=== PATIENT | male | born 1970 | race Caucasian/White ===

== ENCOUNTER 2017-04-25 15:16 | Emergency (ER) | payer OTHER, SELFPAY ==
[2017-04-25] MEDS ORDERED: Bacitracin/Neomycin/Polymyxin B Oint 0.9 GM U/D Packet TOP ONE (15:54)
--- NOTE | 2017-04-25 15:55 | EDM.PDOC ---
ED HPI GENERAL MEDICAL PROBLEM - General Chief Complaint: General Stated Complaint: fall, laceration Time Seen by Provider: 04/25/17 15:30 Source of Information: Reports: Patient History Limitations: Reports: No Limitations - History of Present Illness INITIAL COMMENTS - FREE TEXT/NARRATIVE: The patient presents with complaint of a fall from a ladder at an estimated height of about 5-6 feet. He reports he was trimming branches off of a tree and a tree branch whiplashed back and knocked him off of the ladder and he fell onto his right hip and elbow. He denies other a blow to the head, LOC, headache , neck or back pain, pain of hips or pelvis. He has pain and a laceration of his right elbow and mild abrasions to his left upper cheek. He denies other symptoms or complaints. Right Elbow Pain Score (Numeric/FACES): 2 - Related Data Allergies Allergy/AdvReac Type Severity Reaction Status Date / Time atorvastatin calcium Allergy flushing Verified 04/25/17 15:48 [From Lipitor] Penicillins Allergy Rash Verified 04/25/17 15:48 Home Meds: Home Meds Alfuzosin HCl [Alfuzosin] 10 mg PO QAM 10/15/13 [History] Lisinopril 10 mg PO QAM 10/15/13 [History] glipiZIDE [Glipizide Xl] 2.5 mg PO QAM 10/15/13 [History] Denosumab [Prolia] 60 mg SUBCUT Q180D 03/06/14 [History] InFLIXimab [Remicade] 700 mg IV Q56D 03/06/14 [History] amLODIPine [Norvasc] 5 mg PO QAM 07/27/15 [History] Acetaminophen/HYDROcodone [[place] 325-5 MG] 1 tab PO Q6H PRN #20 tablet 08/02/15 [Rx] Escitalopram [Lexapro] 20 mg PO QAM 08/20/15 [History] Omeprazole 20 mg PO BIDAC 04/13/17 [History] Past Medical History HEENT History: Reports: Impaired Vision Cardiovascular History: Reports: High Cholesterol, Hypertension Gastrointestinal History: Reports: Chronic Constipation, Chronic Diarrhea, GERD , Inflammatory Bowel Disease, Other (See Below) Other Gastrointestinal History: Crohns disease, Colitis, Diverticulitis Genitourinary History: Reports: Prostate Disorder Musculoskeletal History: Reports: Back Pain, Chronic, Osteoarthritis, Osteoporosis Psychiatric History: Reports: Anxiety, Depression Endocrine/Metabolic History: Reports: Diabetes, Type II - Infectious Disease History Infectious Disease History: Reports: Chicken Pox - Past Surgical History GI Surgical History: Reports: Colonoscopy, Other (See Below) Social & Family History - Tobacco Use Smoking Status *Q: Never Smoker Second Hand Smoke Exposure: No - Alcohol Use Days Per Week of Alcohol Use: 1 Number of Drinks Per Day: 1 Total Drinks Per Week: 1 - Recreational Drug Use Recreational Drug Use: No - Living Situation & Occupation Living situation: Reports: , with Family Occupation: Employed ED ROS GENERAL - Review of Systems Review Of Systems: ROS reveals no pertinent complaints other than HPI. ED EXAM, GENERAL - Physical Exam Exam: See Below Exam Limited By: No Limitations General Appearance: Alert, WD/WN, No Apparent Distress Eye Exam: Bilateral Eye: EOMI, Normal Inspection, PERRL Ears: Normal External Exam, Normal Canal, Hearing Grossly Normal, Normal TMs Ear Exam: Bilateral Ear: Auricle Normal, Canal Normal, TM normal Nose: Normal Inspection, Normal Mucosa, No Blood Throat/Mouth: Normal Inspection, Normal Lips, Normal Teeth, Normal Gums, Normal Oropharynx Head: Atraumatic, Normocephalic, Other (Mild abrasions to left upper cheek just inferior and lateral to the eye. ). No: Facial Swelling, Facial Tenderness, Sinus Tenderness Neck: Normal Inspection, Supple, Non-Tender, Full Range of Motion. No: Lymphadenopathy (L), Lymphadenopathy (R), Tender Lateral, Tender Midline, Other Respiratory/Chest: No Respiratory Distress, Lungs Clear, Normal Breath Sounds, No Accessory Muscle Use, Chest Non-Tender, Other (No pain on palpation of ribs or sternum. No palpable crepitus. ) Cardiovascular: Normal Peripheral Pulses, Regular Rate, Rhythm, No Edema, No Gallop, No Murmur, No Rub Peripheral Pulses: 2+: Radial (L), Radial (R) GI/Abdominal: Normal Bowel Sounds, Soft, Non-Tender, No Organomegaly, No Distention Back Exam: Normal Inspection, Full Range of Motion. No: CVA Tenderness (L), CVA Tenderness (R), Paraspinal Tenderness, Vertebral Tenderness Extremities: Normal Range of Motion, Non-Tender, No Pedal Edema, Normal Capillary Refill, Other (Tenderness on palpation around the laceration of the left elbow which is elliptical in shape and measures 5 cm. Small vein severed and hanging outside of wound, artery and nerve not identified. No pain on palpation of elbow joint/bones or forearm or humerus. No pain on palpation of other extremities. No pain on palpation of hips or pelvis and no instability. ) Neurological: Alert, Oriented, CN II-XII Intact, Normal Cognition, Normal Gait, Normal Reflexes, No Motor/Sensory Deficits Psychiatric: Normal Affect, Normal Mood Skin Exam: Warm, Dry, Intact, Normal Color, No Rash Lymphatic: No Adenopathy Course - Vital Signs Last Recorded V/S: Last Vital Signs Temp 97.8 C H 04/25/17 15:17 Pulse 102 H 04/25/17 15:17 Resp 18 04/25/17 15:17 BP 153/89 H 04/25/17 15:17 Pulse Ox 98 04/25/17 15:17 - Orders/Labs/Meds Meds: Medications Discontinued Medications Generic Name Dose Route Start Last Admin Trade Name Jose PRN Reason Stop Dose Admin Lidocaine HCl Confirm 04/25/17 15:26 Xylocaine-Mpf 1% Administered 04/25/17 15:27 Dose 5 ml .ROUTE .STK-MED ONE Departure - Departure Time of Disposition: 15:55 Disposition: Home, Self-Care 01 Clinical Impression: Laceration of left elbow without complication Qualifiers: Encounter type: initial encounter Qualified Code(s): S51.012A - Laceration without foreign body of left elbow, initial encounter Abrasion of face Qualifiers: Encounter type: initial encounter Qualified Code(s): S00.81XA - Abrasion of other part of head, initial encounter - Discharge Information Forms: ED Department Discharge - Assessment/Plan Assessment:: Laceration of left elbow in elliptical shape measuring 5 cm. Abrasions of left face. Plan: 1. Laceration soaked in betadine solution and irrigated copiously with NS and Betadine solution. 2. Anesthetized with 1% lidocaine without epinephrine to total of 10 mL and injected with 27-gauge 1/2" needle. 3. Suture closure performed using 4-0 Ethilon in interrupted fashion. 4. Antibiotic ointment applied followed by sterile dressing. 5. Keep dressing dry and intact for 48 hours, then may remove and shower and clean with mild soap but do not soak until sutures are removed. 6. Wounds of face cleansed and covered with antibiotic ointment and sterile dressing, may remove in 24 hours, then shower and clean with mild soap and do not soak until healed. 7. OTC ibuprofen 400-800 mg every 6 hours PRN pain or inflammation. 8. Elevate and ice elbow in 20 minute cycles every 1-2 hours as able and as tolerated. 9. No lifting more than 5 pounds with right arm until sutures removed. 10. Follow up with PCP in 1 week for suture removal or sooner if increased pain , redness, swelling, or purulent drainage.
[2017-04-25 17:53] VITALS: BP 150/104
== END 2017-04-25 17:36 ==
LOC: LL.ED 15:16
DX: S51.012A Laceration without foreign body of left elbow, initial encounter (principal); S00.81XA Abrasion of other part of head, initial encounter; H54.7 Unspecified visual loss; E78.00 Pure hypercholesterolemia, unspecified; I10 Essential (primary) hypertension; K21.9 Gastro-esophageal reflux disease without esophagitis; K50.90 Crohn's disease, unspecified, without complications; M81.0 Age-related osteoporosis without current pathological fracture; M19.90 Unspecified osteoarthritis, unspecified site; F41.9 Anxiety disorder, unspecified; F32.9 Major depressive disorder, single episode, unspecified; E11.9 Type 2 diabetes mellitus without complications; Z88.0 Allergy status to penicillin; Z88.8 Allergy status to other drugs, medicaments and biological substances; W11.XXXA Fall on and from ladder, initial encounter
CPT/HCPCS: 12002; 99283

== ENCOUNTER 2017-11-23 17:22 | Observation (INO) | payer OTHER ==
[2017-11-23] MEDS ORDERED: Ondansetron 4 MG/2 ML SDV IVPUSH ONE (17:23)
[2017-11-23] MEDS ORDERED: Ketorolac 30 MG/ML SDV IVPUSH ONE (17:23)
[2017-11-23] MEDS: Sodium Chloride 0.9% 10 ML Syringe FLUSH PRN ×2 (17:47→19:45)
[2017-11-23] MEDS ORDERED: Morphine 10 MG/ML Syringe IVPUSH ONE ×2 (17:51→21:26)
[2017-11-23] MEDS ORDERED: Tamsulosin 0.4 MG Cap.ER PO ONE (18:02)
[2017-11-23 18:03] LABS: CHLORIDE,CL 101 mmol/L (98-107); SODIUM,NA 137 mmol/L (136-145)
--- NOTE | 2017-11-23 18:44 | EDM.PDOC ---
ED HPI GENERAL MEDICAL PROBLEM - General Chief Complaint: Flank Pain Stated Complaint: left flank pain/ left side pain Time Seen by Provider: 11/23/17 17:44 Source of Information: Reports: Patient History Limitations: Reports: No Limitations - History of Present Illness INITIAL COMMENTS - FREE TEXT/NARRATIVE: Patient complains of left sided lower abdominal/side pain that has been gradually developing all day. He notes that he started to feel like he had to urinate more frequently last night but when he tried to there was not much urine produced. No obvious hematuria. Says it feels like when he had a kidney stone approximately 10 years ago. No fevers/chills. Did vomit once due to the pain. No bowel changes. No other changes reported. Long history of Crohn's Dz. He does not feel like this is a Crohn's attack. Has not had any significant Crohn's issues for several years. Left Flank Pain Score (Numeric/FACES): 10 - Related Data Allergies Allergy/AdvReac Type Severity Reaction Status Date / Time atorvastatin calcium Allergy flushing Verified 11/23/17 18:10 [From Lipitor] Penicillins Allergy Rash Verified 11/23/17 18:10 Home Meds: Home Meds Alfuzosin HCl [Alfuzosin] 10 mg PO QAM 10/15/13 [History] Lisinopril 10 mg PO QAM 10/15/13 [History] glipiZIDE [Glipizide Xl] 2.5 mg PO QAM 10/15/13 [History] Denosumab [Prolia] 60 mg SUBCUT Q180D 03/06/14 [History] InFLIXimab [Remicade] 700 mg IV Q56D 03/06/14 [History] amLODIPine [Norvasc] 5 mg PO QAM 07/27/15 [History] Escitalopram [Lexapro] 20 mg PO QAM 08/20/15 [History] Omeprazole 20 mg PO BIDAC 04/13/17 [History] Past Medical History HEENT History: Reports: Impaired Vision Cardiovascular History: Reports: High Cholesterol, Hypertension Gastrointestinal History: Reports: Chronic Constipation, Chronic Diarrhea, GERD , Inflammatory Bowel Disease, Other (See Below) Other Gastrointestinal History: Crohns disease, Colitis, Diverticulitis Genitourinary History: Reports: Prostate Disorder Musculoskeletal History: Reports: Back Pain, Chronic, Osteoarthritis, Osteoporosis Psychiatric History: Reports: Anxiety, Depression Endocrine/Metabolic History: Reports: Diabetes, Type II - Infectious Disease History Infectious Disease History: Reports: Chicken Pox - Past Surgical History GI Surgical History: Reports: Colonoscopy, Other (See Below) Social & Family History - Family History Other Dermatologic Family History: no changes - Tobacco Use Smoking Status *Q: Never Smoker Second Hand Smoke Exposure: No - Alcohol Use Days Per Week of Alcohol Use: 1 Number of Drinks Per Day: 1 Total Drinks Per Week: 1 - Recreational Drug Use Recreational Drug Use: No - Living Situation & Occupation Living situation: Reports: , with Family Occupation: Employed ED ROS GENERAL - Review of Systems Review Of Systems: See Below Constitutional: Reports: Diaphoresis (with pain attacks), Decreased Appetite. Denies: Fever, Chills, Malaise, Weakness, Fatigue, Night Sweats HEENT: Reports: No Symptoms Respiratory: Reports: No Symptoms Cardiovascular: Reports: No Symptoms GI/Abdominal: Reports: Abdominal Pain (left lower abdomen, crampy, sharp, waxes and wanes), Diarrhea (chronic loose stools, no changes), Nausea, Vomiting. Denies: Constipation, Distension, Hematemesis, Hematochezia : Reports: Dysuria, Flank Pain, Frequency. Denies: Discharge, Hematuria Musculoskeletal: Reports: No Symptoms Skin: Reports: No Symptoms Neurological: Reports: No Symptoms Psychiatric: Reports: No Symptoms Hematologic/Lymphatic: Reports: No Symptoms ED EXAM, GI/ABD - Physical Exam Exam: See Below Exam Limited By: No Limitations General Appearance: Alert, WD/WN, Anxious, Moderate Distress Eyes: Bilateral: Normal Appearance, EOMI Ears: Normal External Exam, Normal Canal Nose: No: Nasal Deformity, Nasal Swelling, Nasal Drainage Throat/Mouth: Normal Lips, Normal Voice, No Airway Compromise Head: Atraumatic, Normocephalic Neck: Normal Inspection, Supple, Non-Tender, Full Range of Motion Respiratory/Chest: No Respiratory Distress, Lungs Clear, Normal Breath Sounds, No Accessory Muscle Use, Chest Non-Tender Cardiovascular: Normal Peripheral Pulses, Regular Rate, Rhythm, No Murmur GI/Abdominal Exam: Soft, Other (decreased bowel sounds throughout, rounded abdomen (normal per patient), left lower abdominal pain with palpation. ). No: Guarding, Rigid, Rebound (Male) Exam: Deferred Rectal (Males) Exam: Deferred Back Exam: No: CVA Tenderness (L), CVA Tenderness (R), Muscle Spasm, Paraspinal Tenderness, Vertebral Tenderness Extremities: Normal Range of Motion, Non-Tender, Normal Capillary Refill Neurological: Alert, Oriented, Normal Cognition, No Motor/Sensory Deficits Psychiatric: Normal Affect, Normal Mood Skin Exam: Warm, Dry, Intact, Normal Color Course - Vital Signs Last Recorded V/S: Last Vital Signs Temp 36.3 C 11/23/17 19:00 Pulse 88 11/23/17 19:00 Resp 20 11/23/17 19:00 BP 162/101 H 11/23/17 19:00 Pulse Ox 99 11/23/17 19:00 - Orders/Labs/Meds Orders: Active Orders 24 hr Category Date Time Status Implanted Port Access [RC] ASDIRECTED Care 11/23/17 17:42 Active Implanted Port De-Access [RC] ASDIRECTED Care 11/23/17 17:42 Active Abdomen Pelvis wo Cont [CT] Stat Exams 11/23/17 17:24 Taken Sodium Chloride 0.9% [Saline Flush] Med 11/23/17 17:41 Active 10 ml FLUSH ASDIRECTED PRN Medication Orders Sodium Chloride (Saline Flush) 10 ml FLUSH ASDIRECTED PRN PRN Reason: Keep Vein Open Last Admin: 11/23/17 19:45 Dose: 10 ml Admin: 11/23/17 17:47 Dose: 10 ml Labs: Laboratory Tests 11/23/17 11/23/17 11/23/17 Range/Units 17:25 17:40 17:40 WBC 15.9 H (4.0-10.2) K/uL RBC 4.90 (4.33-5.41) M/uL Hgb 14.6 D (13.1-16.8) g/dL Hct 43.8 (39.0-49.0) % MCV 89.4 D (84.0-98.0) fL MCH 29.8 (28.2-33.3) pg MCHC 33.3 (31.7-36.0) g/dL RDW 13.4 (11.2-14.1) % Plt Count 269 (150-350) K/uL Neut % (Auto) 59.9 (45.0-80.0) % Lymph % (Auto) 30.5 (10.0-50.0) % Phillips % (Auto) 8.5 (2.0-14.0) % Eos % (Auto) 0.8 (0.0-5.0) % Baso % (Auto) 0.3 (0.0-2.0) % Neut # (Auto) 9.54 H (1.40-7.00) K/uL Lymph # (Auto) 4.86 H (0.50-3.50) K/uL Phillips # (Auto) 1.36 H (0.00-1.00) K/uL Eos # (Auto) 0.12 (0.00-0.50) K/uL Baso # (Auto) 0.05 (0.00-0.20) K/uL Sodium 137 (136-145) mmol/L Potassium 4.2 (3.5-5.1) mmol/L Chloride 101 (98-107) mmol/L Carbon Dioxide 23.9 (21.0-32.0) mmol/L BUN 24 H (7-18) mg/dL Creatinine 0.89 (0.51-1.17) mg/dL Est Cr Clr Drug Dosing TNP Estimated GFR (MDRD) > 60 mL/min Glucose 200 H (74-106) mg/dL Calcium 9.4 D (8.5-10.1) mg/dL Total Bilirubin 0.3 (0.2-1.0) mg/dL AST 19 (15-37) U/L ALT 43 (12-78) U/L Alkaline Phosphatase 86 (46-116) IU/L Total Protein 7.6 (6.4-8.2) g/dL Albumin 3.7 (3.4-5.0) g/dL Specimen Type Urinvoid Urine Color Castor H (YELLOW) Urine Appearance Slightly cloudy H (CLEAR) Urine pH TNP Ur Specific [place] TNP Urine Protein TNP Urine Glucose (UA) TNP Urine Ketones TNP Urine Occult Blood TNP Urine Nitrite TNP Urine Bilirubin TNP Urine Urobilinogen TNP Ur Leukocyte Esterase TNP Urine RBC >100 H /HPF Urine WBC 0-5 /HPF Ur Epithelial Cells Few /LPF Urine Bacteria Rare (NONE TO FEW) /HPF Urinalysis Comment Meds: Medications Generic Name Dose Route Start Last Admin Trade Name Freq PRN Reason Stop Dose Admin Sodium Chloride 10 ml 11/23/17 17:41 11/23/17 19:45 Saline Flush FLUSH 10 ml ASDIRECTED PRN Administration Keep Vein Open Discontinued Medications Generic Name Dose Route Start Last Admin Trade Name Jose PRN Reason Stop Dose Admin Sodium Chloride 500 mls @ 500 mls/hr 11/23/17 18:48 11/23/17 19:45 Normal Saline IV 11/23/17 19:47 500 mls/hr ONETIME ONE Administration Ketorolac Tromethamine 30 mg 11/23/17 17:23 11/23/17 17:34 Toradol IVPUSH 11/23/17 17:24 30 mg ONETIME ONE Administration Morphine Sulfate 5 mg 11/23/17 17:51 11/23/17 18:01 Morphine IVPUSH 11/23/17 17:52 5 mg ONETIME ONE Administration Morphine Sulfate 5 mg 11/23/17 19:25 11/23/17 19:42 Morphine IM 11/23/17 19:26 5 mg ONETIME ONE Administration Ondansetron HCl 4 mg 11/23/17 17:23 11/23/17 17:38 Zofran IVPUSH 11/23/17 17:24 4 mg ONETIME ONE Administration Tamsulosin HCl 0.4 mg 11/23/17 18:02 11/23/17 18:05 Flomax PO 11/23/17 18:03 0.4 mg ONETIME ONE Administration - Radiology Interpretation CT Results Date: 11/23/17 CT Results Time: 06:26 (No obvious stone identified in ureter per Radiologist. No hydro. Small diverticula in lower colon. Appendix absent. Small right injinal hernia with no bowel involvment. Small stone right kidney. ) - Re-Assessments/Exams Free Text/Narrative Re-Assessment/Exam: 11/23/17 19:39 Patient took a Pyridium at home which made UA specimen unfit to go through standard lab equipment. Dipped. + for greater than 100 RBC. Minimal WBC in UA. CBC showed elevated WBC at 15.9 May be demargination secondary to pain response. No evidence of UTI. Given the dysuria and hematuria/flank pain, still a suspicion for a small kidney stone that was not picked up by CT scan. Patient continues to deny that this feels like Crohn's flare. Plan at this time is to admit observation, give IV fluids, and focus on pain management. Strain urine. Recheck labs in the morning. Consider starting medication to address Crohn's flare if this appears to be less likely caused by a stone. Departure - Departure Time of Disposition: 19:00 Disposition: Refer to Observation Condition: Good Clinical Impression: Crohn's disease, Abdominal pain, Hematuria, Left flank pain - Discharge Information - Problem List & Annotations (1) Hematuria SNOMED Code(s): 85699421 Code(s): R31.9 - HEMATURIA, UNSPECIFIED Status: Acute Priority: High Current Visit: Yes Onset Date: ~11/23/17 Annotation/Comment:: Greater than 100 RBC, minimal WBC. (2) Left lower quadrant pain SNOMED Code(s): 567784614 Code(s): R10.32 - LEFT LOWER QUADRANT PAIN Status: Acute Current Visit: No Annotation/Comment:: LLQ pain. Colicky in nature. Patient says it does not feel consistent with Crohn's flare but instead feels like when he had a kidney stone. (3) Crohn's disease SNOMED Code(s): 55124434 Code(s): K50.90 - CROHN'S DISEASE, UNSPECIFIED, WITHOUT COMPLICATIONS Status: Acute Priority: Medium Current Visit: No Annotation/Comment:: Excellent control at this time by patient history especially after changing to a gluten-free diet with recent intentional weight loss for better control of his diet. (4) Left flank pain SNOMED Code(s): 256568974 Code(s): R10.9 - UNSPECIFIED ABDOMINAL PAIN Status: Acute Current Visit: Yes Onset Date: ~11/23/17 Annotation/Comment:: Left flank/side discomfort today. (5) HTN, Benign hypertension SNOMED Code(s): 20084868 Code(s): I10 - ESSENTIAL (PRIMARY) HYPERTENSION Status: Acute Priority: High Current Visit: No Annotation/Comment:: Elevated tonight. Patient uncomfortable. Will continue to monitor for trends. (6) Diabetes mellitus SNOMED Code(s): 31823035 Code(s): E11.9 - TYPE 2 DIABETES MELLITUS WITHOUT COMPLICATIONS Status: Chronic Priority: Medium Current Visit: No Annotation/Comment:: Will perform Accuchecks and A1c - Problem List Review Problem List Initiated/Reviewed/Updated: Yes - My Orders Last 24 Hours: My Active Orders 11/23/17 17:24 Abdomen Pelvis wo Cont [CT] Stat 11/23/17 17:41 Sodium Chloride 0.9% [Saline Flush] 10 ml FLUSH ASDIRECTED PRN 11/23/17 17:42 Implanted Port Access [RC] ASDIRECTED Implanted Port De-Access [RC] ASDIRECTED - Assessment/Plan Admission H&P: Please use this note as an admission H&P Last 24 Hours: My Active Orders 11/23/17 17:24 Abdomen Pelvis wo Cont [CT] Stat 11/23/17 17:41 Sodium Chloride 0.9% [Saline Flush] 10 ml FLUSH ASDIRECTED PRN 11/23/17 17:42 Implanted Port Access [RC] ASDIRECTED Implanted Port De-Access [RC] ASDIRECTED Assessment:: Left flank pain/lower abdominal pain with hematuria. No focal stone identified on CT per Radiology. Elevated WBC. Review of patient's multiple previous labs shows that he usually has higher than normal WBC. Suspect that pain could be contributing to elevation. Plan: IV fluids, pain management. Observe for changes. May need to consider other medications/interventions if it begins to appear that this may not be due to a stone.
[2017-11-23] MEDS ORDERED: Sodium Chloride 0.9% 500 ML IV ONE (18:48)
[2017-11-23] MEDS ORDERED: Morphine 10 MG/ML Syringe IM ONE (19:25)
[2017-11-23] MEDS ORDERED: HYDROmorphone 1 MG/ML Syringe IVPUSH ONE (20:04)
[2017-11-23] MEDS ORDERED: Ondansetron 4 MG/2 ML SDV IVPUSH PRN (20:14)
[2017-11-23] MEDS: Morphine 4 MG/ML Syringe IVPUSH PRN (20:46)
[2017-11-23] MEDS: Sodium Chloride 0.9% 1,000 ML IV SCH (20:46)
[2017-11-24] MEDS: Ketorolac 30 MG/ML SDV IVPUSH PRN ×3 (00:14→16:06)
[2017-11-24] MEDS: Morphine 4 MG/ML Syringe IVPUSH PRN ×6 (01:15→17:49)
[2017-11-24] MEDS: Sodium Chloride 0.9% 1,000 ML IV SCH ×2 (04:59→13:21)
[2017-11-24 07:27] LABS: CHLORIDE,CL 100 mmol/L (98-107); SODIUM,NA 136 mmol/L (136-145)
[2017-11-24] MEDS: Lisinopril 10 MG Tab PO SCH (07:36)
[2017-11-24] MEDS ORDERED: Iopamidol 612 MG/ML 100 ML Bottle IVPUSH ONE (08:03)
[2017-11-24] MEDS: Sodium Chloride 0.9% 10 ML Syringe FLUSH PRN ×4 (08:12→16:07)
[2017-11-24] MEDS: Omeprazole 20 MG Cap.CR PO SCH ×2 (08:51→17:07)
[2017-11-24] MEDS: Escitalopram 20 MG Tab PO SCH (08:51)
[2017-11-24] MEDS: amLODIPine 5 MG Tab PO SCH (08:51)
[2017-11-24] MEDS: glipiZIDE 5 MG Tab.ER PO SCH (08:51)
[2017-11-24] MEDS: Tamsulosin 0.4 MG Cap.ER PO SCH (08:52)
[2017-11-24] MEDS: Alfuzosin 10 MG Tab.ER PO SCH (08:52)
--- NOTE | 2017-11-24 14:28 | PCM.PN ---
- General Info Date of Service: 11/24/17 Functional Status: Reports: Other (still with pain but improved) - Review of Systems General: Reports: Other (LLQ abdomenal pain) HEENT: Reports: No Symptoms Pulmonary: Reports: No Symptoms Cardiovascular: Reports: No Symptoms Gastrointestinal: Reports: Abdominal Pain (LLQ), Decreased Appetite, Nausea Genitourinary: Reports: No Symptoms Musculoskeletal: Reports: No Symptoms Skin: Reports: No Symptoms Neurological: Reports: No Symptoms Psychiatric: Reports: No Symptoms - Patient Data Vitals - Most Recent: Last Vital Signs Temp 97.4 F 11/24/17 11:38 Pulse 82 11/24/17 11:38 Resp 14 11/24/17 11:38 BP 155/98 H 11/24/17 11:38 Pulse Ox 92 L 11/24/17 11:38 Weight - Most Recent: 219 lb 6.394 oz I&O - Last 24 Hours: Intake & Output 11/23/17 11/24/17 11/24/17 22:59 06:59 14:59 Intake Total 3386 300 Output Total 75 600 200 Balance -75 2786 100 Lab Results Last 24 Hours: Laboratory Results - last 24 hr 11/23/17 11/24/17 11/24/17 Range/Units 20:57 06:48 06:48 WBC 17.5 H (4.0-10.2) K/uL RBC 4.62 (4.33-5.41) M/uL Hgb 13.8 (13.1-16.8) g/dL Hct 42.1 (39.0-49.0) % MCV 91.1 (84.0-98.0) fL MCH 29.9 (28.2-33.3) pg MCHC 32.8 (31.7-36.0) g/dL RDW 13.4 (11.2-14.1) % Plt Count 220 (150-350) K/uL Neut % (Auto) 78.6 (45.0-80.0) % Lymph % (Auto) 13.0 (10.0-50.0) % [place] % (Auto) 8.2 (2.0-14.0) % Eos % (Auto) 0.1 (0.0-5.0) % Baso % (Auto) 0.1 (0.0-2.0) % Neut # (Auto) 13.74 H (1.40-7.00) K/uL Lymph # (Auto) 2.26 (0.50-3.50) K/uL [place] # (Auto) 1.43 H (0.00-1.00) K/uL Eos # (Auto) 0.01 (0.00-0.50) K/uL Baso # (Auto) 0.01 (0.00-0.20) K/uL Sodium 136 (136-145) mmol/L Potassium 4.7 (3.5-5.1) mmol/L Chloride 100 (98-107) mmol/L Carbon Dioxide 26.3 (21.0-32.0) mmol/L BUN 23 H (7-18) mg/dL Creatinine 1.09 (0.51-1.17) mg/dL Est Cr Clr Drug Dosing 74.45 mL/min Estimated GFR (MDRD) > 60 mL/min Glucose 214 H (74-106) mg/dL POC Glucose 190 H (65-110) mg/dl Hemoglobin A1c (4.3-5.7) % Calcium 8.1 L (8.5-10.1) mg/dL Specimen Type Urine Color Urine Appearance Urine pH (5.0-9.0) Ur Specific [place] (1.005-1.030) Urine Protein (NEGATIVE) mg/dL Urine Glucose (UA) (NEGATIVE) mg/dL Urine Ketones (NEGATIVE) mg/dL Urine Occult Blood (NEGATIVE) Urine Nitrite (NEGATIVE) Urine Bilirubin (NEGATIVE) Urine Urobilinogen (0.2-1.0) E.U./dL Ur Leukocyte Esterase (NEGATIVE) Urine RBC /HPF Urine WBC /HPF Ur Epithelial Cells /LPF Urine Bacteria (NONE TO FEW) /HPF 11/24/17 11/24/17 11/24/17 Range/Units 06:48 07:30 13:15 WBC (4.0-10.2) K/uL RBC (4.33-5.41) M/uL Hgb (13.1-16.8) g/dL Hct (39.0-49.0) % MCV (84.0-98.0) fL MCH (28.2-33.3) pg MCHC (31.7-36.0) g/dL RDW (11.2-14.1) % Plt Count (150-350) K/uL Neut % (Auto) (45.0-80.0) % Lymph % (Auto) (10.0-50.0) % [place] % (Auto) (2.0-14.0) % Eos % (Auto) (0.0-5.0) % Baso % (Auto) (0.0-2.0) % Neut # (Auto) (1.40-7.00) K/uL Lymph # (Auto) (0.50-3.50) K/uL [place] # (Auto) (0.00-1.00) K/uL Eos # (Auto) (0.00-0.50) K/uL Baso # (Auto) (0.00-0.20) K/uL Sodium (136-145) mmol/L Potassium (3.5-5.1) mmol/L Chloride (98-107) mmol/L Carbon Dioxide (21.0-32.0) mmol/L BUN (7-18) mg/dL Creatinine (0.51-1.17) mg/dL Est Cr Clr Drug Dosing mL/min Estimated GFR (MDRD) mL/min Glucose (74-106) mg/dL POC Glucose 209 H (65-110) mg/dl Hemoglobin A1c 8.6 H (4.3-5.7) % Calcium (8.5-10.1) mg/dL Specimen Type Urin[place]ad Urine Color Yellow Urine Appearance Clear Urine pH 7.0 (5.0-9.0) Ur Specific [place] 1.015 (1.005-1.030) Urine Protein Negative (NEGATIVE) mg/dL Urine Glucose (UA) 100 H (NEGATIVE) mg/dL Urine Ketones Negative (NEGATIVE) mg/dL Urine Occult Blood Small H (NEGATIVE) Urine Nitrite Negative (NEGATIVE) Urine Bilirubin Negative (NEGATIVE) Urine Urobilinogen 0.2 (0.2-1.0) E.U./dL Ur Leukocyte Esterase Negative (NEGATIVE) Urine RBC 10-20 H /HPF Urine WBC 0-5 /HPF Ur Epithelial Cells Rare /LPF Urine Bacteria Rare (NONE TO FEW) /HPF Med Orders - Current: Current Medications Alfuzosin HCl (Uroxatral) 10 mg PO [facility] Last Admin: 11/24/17 08:52 Dose: 10 mg Amlodipine Besylate (Norvasc) 5 mg PO [facility] Last Admin: 11/24/17 08:51 Dose: 5 mg Diazepam (Valium) 5 mg IVPUSH Q6H PRN PRN Reason: Spasms Last Admin: 11/24/17 08:54 Dose: 5 mg Escitalopram Oxalate (Lexapro) 20 mg PO [facility] Last Admin: 11/24/17 08:51 Dose: 20 mg Glipizide (Glucotrol Xl) 2.5 mg PO [facility] Last Admin: 11/24/17 08:51 Dose: 2.5 mg Sodium Chloride (Normal Saline) 1,000 mls @ 125 mls/hr IV ASDIRECTED [facility] Last Admin: 11/24/17 13:21 Dose: 125 mls/hr Ketorolac Tromethamine (Toradol) 30 mg IVPUSH Q6H PRN PRN Reason: Pain Stop: 11/28/17 20:17 Last Admin: 11/24/17 07:25 Dose: 30 mg Lisinopril (Prinivil) 10 mg PO [facility] Last Admin: 11/24/17 07:36 Dose: 10 mg Morphine Sulfate (Morphine) 2 mg SUBCUT Q1H PRN PRN Reason: Pain Morphine Sulfate (Morphine) 4 mg IVPUSH Q2H PRN PRN Reason: Pain (severe 7-10) Last Admin: 11/24/17 13:19 Dose: 4 mg [facility] Last Admin: 11/24/17 08:51 Dose: 20 mg Ondansetron HCl (Zofran) 4 mg IVPUSH Q6H PRN PRN Reason: Nausea/Vomiting Last Admin: 11/24/17 08:11 Dose: 4 mg Sodium Chloride (Saline Flush) 10 ml FLUSH ASDIRECTED PRN PRN Reason: Keep Vein Open Last Admin: 11/24/17 11:06 Dose: 10 ml Tamsulosin HCl (Flomax) 0.4 mg PO DAILY@0900 [facility] Last Admin: 11/24/17 08:52 Dose: 0.4 mg Discontinued Medications Diazepam (Valium) 5 mg IVPUSH ONETIME ONE Stop: 11/23/17 21:26 Last Admin: 11/23/17 21:44 Dose: 5 mg Hydromorphone HCl (Dilaudid) 1 mg IVPUSH ONETIME ONE Stop: 11/23/17 20:05 Last Admin: 11/23/17 20:23 Dose: 1 mg Sodium Chloride (Normal Saline) 500 mls @ 500 mls/hr IV ONETIME ONE Stop: 11/23/17 19:47 Last Admin: 11/23/17 19:45 Dose: 500 mls/hr Iopamidol (Isovue-300 (61%)) 100 ml IVPUSH ONETIME ONE Stop: 11/24/17 08:04 Last Admin: 11/24/17 09:01 Dose: 100 ml Ketorolac Tromethamine (Toradol) 30 mg IVPUSH ONETIME ONE Stop: 11/23/17 17:24 Last Admin: 11/23/17 17:34 Dose: 30 mg Morphine Sulfate (Morphine) 5 mg IVPUSH ONETIME ONE Stop: 11/23/17 17:52 Last Admin: 11/23/17 18:01 Dose: 5 mg Morphine Sulfate (Morphine) 5 mg IM ONETIME ONE Stop: 11/23/17 19:26 Last Admin: 11/23/17 19:42 Dose: 5 mg Morphine Sulfate (Morphine) 5 mg IVPUSH ONETIME ONE Stop: 11/23/17 21:27 Last Admin: 11/23/17 21:44 Dose: 5 mg Ondansetron HCl (Zofran) 4 mg IVPUSH ONETIME ONE Stop: 11/23/17 17:24 Last Admin: 11/23/17 17:38 Dose: 4 mg Tamsulosin HCl (Flomax) 0.4 mg PO ONETIME ONE Stop: 11/23/17 18:03 Last Admin: 11/23/17 18:05 Dose: 0.4 mg - Exam General: Alert, Cooperative HEENT: Mucous Membr. Moist/[place] Neck: Trachea Midline, No JVD Lungs: Clear to Auscultation, Normal Respiratory Effort Cardiovascular: Regular Rate, Regular Rhythm GI/Abdominal Exam: Soft, No Distention, No Mass, Tender (LLQ), Abnormal Bowel Sounds (hypo) (Male) Exam: Deferred Back Exam: Normal Inspection Extremities: Normal Inspection, Non-Tender, No Pedal Edema Skin: Warm, Dry, Intact Neurological: No New Focal Deficit Psy/Mental Status: Alert, Normal Affect, Normal Mood - Problem List & Annotations (1) Kidney stone on left side SNOMED Code(s): 19508701 Code(s): N20.0 - CALCULUS OF KIDNEY Status: Acute Priority: High Current Visit: Yes (2) Abdominal pain SNOMED Code(s): 02256375 Code(s): R10.9 - UNSPECIFIED ABDOMINAL PAIN Status: Acute Current Visit: Yes (3) Crohn's disease SNOMED Code(s): 77680577 Code(s): K50.90 - CROHN'S DISEASE, UNSPECIFIED, WITHOUT COMPLICATIONS Status: Acute Priority: Medium Current Visit: Yes Annotation/Comment:: Excellent control at this time by patient history especially after changing to a gluten-free diet with recent intentional weight loss for better control of his diet. (4) Hematuria SNOMED Code(s): 26797204 Code(s): R31.9 - HEMATURIA, UNSPECIFIED Status: Acute Priority: High Current Visit: Yes Onset Date: ~11/23/17 Annotation/Comment:: Greater than 100 RBC, minimal WBC. (5) Left flank pain SNOMED Code(s): 064044107 Code(s): R10.9 - UNSPECIFIED ABDOMINAL PAIN Status: Acute Current Visit: Yes Onset Date: ~11/23/17 Annotation/Comment:: Left flank/side discomfort today. (6) Abdominal pain SNOMED Code(s): 06902759 Code(s): R10.9 - UNSPECIFIED ABDOMINAL PAIN Status: Acute Priority: High Current Visit: No (7) Diabetes mellitus type 2 SNOMED Code(s): 71891873 Code(s): E11.9 - TYPE 2 DIABETES MELLITUS WITHOUT COMPLICATIONS Status: Acute Priority: Medium Current Visit: No Annotation/Comment:: Under good control after recent weight loss as above with patient currently taking Accu- Cheks on a q. weekly basis (8) HTN, Benign hypertension SNOMED Code(s): 65129642 Code(s): I10 - ESSENTIAL (PRIMARY) HYPERTENSION Status: Acute Priority: High Current Visit: No Annotation/Comment:: Elevated tonight. Patient uncomfortable. Will continue to monitor for trends. - Problem List Review Problem List Initiated/Reviewed/Updated: Yes - My Orders Last 24 Hours: My Active Orders 11/24/17 Dinner Regular Diet [DIET] 11/25/17 05:11 CBC WITH AUTO DIFF [HEME] Routine CMP [COMPREHENSIVE METABOLIC PN,CMP] [CHEM] Routine - Plan Plan:: 11/24/17 Ronald Hurley MD Still with pain LLQ but slight improvement. CT scan kidney stone has probably just passed through. Advance diet. Continue IV fluids and IV toradol.
[2017-11-25] MEDS: Morphine 2 MG/ML Syringe SUBCUT PRN ×2 (00:30→05:47)
[2017-11-25] MEDS: Ketorolac 30 MG/ML SDV IVPUSH PRN (07:02)
[2017-11-25] MEDS: Sodium Chloride 0.9% 10 ML Syringe FLUSH PRN ×2 (07:03→07:05)
[2017-11-25 07:20] LABS: CHLORIDE,CL 100 mmol/L (98-107); SODIUM,NA 133 mmol/L (136-145)
[2017-11-25] MEDS: Omeprazole 20 MG Cap.CR PO SCH (08:55)
[2017-11-25] MEDS: glipiZIDE 5 MG Tab.ER PO SCH (08:56)
[2017-11-25] MEDS: Tamsulosin 0.4 MG Cap.ER PO SCH (08:56)
[2017-11-25] MEDS: amLODIPine 5 MG Tab PO SCH (08:58)
[2017-11-25] MEDS: Escitalopram 20 MG Tab PO SCH (08:58)
[2017-11-25] MEDS: Alfuzosin 10 MG Tab.ER PO SCH (08:59)
[2017-11-25] MEDS: Lisinopril 10 MG Tab PO SCH (08:59)
[2017-11-25 11:10] VITALS: BP 126/74
--- NOTE | 2017-11-25 15:36 | PCM.PN ---
- General Info Date of Service: 11/25/17 Functional Status: Reports: Pain Controlled, Tolerating Diet, Ambulating - Review of Systems General: Reports: No Symptoms HEENT: Reports: No Symptoms Pulmonary: Reports: No Symptoms Cardiovascular: Reports: No Symptoms Gastrointestinal: Reports: No Symptoms Genitourinary: Reports: No Symptoms Musculoskeletal: Reports: No Symptoms Skin: Reports: No Symptoms Neurological: Reports: No Symptoms Psychiatric: Reports: No Symptoms - Patient Data Vitals - Most Recent: Last Vital Signs Temp 97.8 F 11/25/17 11:09 Pulse 85 11/25/17 11:09 Resp 16 11/25/17 11:09 BP 126/74 11/25/17 11:09 Pulse Ox 97 11/25/17 11:09 Weight - Most Recent: 219 lb 6.394 oz I&O - Last 24 Hours: Intake & Output 11/25/17 11/25/17 11/25/17 06:59 14:59 22:59 Intake Total 1230 Output Total 400 500 Balance -400 730 Lab Results Last 24 Hours: Laboratory Results - last 24 hr 11/24/17 11/24/17 11/24/17 Range/Units 11:32 17:06 20:58 WBC (4.0-10.2) K/uL RBC (4.33-5.41) M/uL Hgb (13.1-16.8) g/dL Hct (39.0-49.0) % MCV (84.0-98.0) fL MCH (28.2-33.3) pg MCHC (31.7-36.0) g/dL RDW (11.2-14.1) % Plt Count (150-350) K/uL Neut % (Auto) (45.0-80.0) % Lymph % (Auto) (10.0-50.0) % [place] % (Auto) (2.0-14.0) % Eos % (Auto) (0.0-5.0) % Baso % (Auto) (0.0-2.0) % Neut # (Auto) (1.40-7.00) K/uL Lymph # (Auto) (0.50-3.50) K/uL [place] # (Auto) (0.00-1.00) K/uL Eos # (Auto) (0.00-0.50) K/uL Baso # (Auto) (0.00-0.20) K/uL Sodium (136-145) mmol/L Potassium (3.5-5.1) mmol/L Chloride (98-107) mmol/L Carbon Dioxide (21.0-32.0) mmol/L BUN (7-18) mg/dL Creatinine (0.51-1.17) mg/dL Est Cr Clr Drug Dosing mL/min Estimated GFR (MDRD) mL/min Glucose (74-106) mg/dL POC Glucose 174 H 182 H 209 H (65-110) mg/dl Calcium (8.5-10.1) mg/dL Total Bilirubin (0.2-1.0) mg/dL AST (15-37) U/L ALT (12-78) U/L Alkaline Phosphatase (46-116) IU/L Total Protein (6.4-8.2) g/dL Albumin (3.4-5.0) g/dL 11/25/17 11/25/17 11/25/17 Range/Units 06:38 06:38 08:01 WBC 20.5 H (4.0-10.2) K/uL RBC 4.54 (4.33-5.41) M/uL Hgb 13.6 (13.1-16.8) g/dL Hct 41.5 (39.0-49.0) % MCV 91.4 (84.0-98.0) fL MCH 30.0 (28.2-33.3) pg MCHC 32.8 (31.7-36.0) g/dL RDW 13.6 (11.2-14.1) % Plt Count 207 (150-350) K/uL Neut % (Auto) 81.1 H (45.0-80.0) % Lymph % (Auto) 10.0 (10.0-50.0) % [place] % (Auto) 8.6 (2.0-14.0) % Eos % (Auto) 0.2 (0.0-5.0) % Baso % (Auto) 0.1 (0.0-2.0) % Neut # (Auto) 16.59 H (1.40-7.00) K/uL Lymph # (Auto) 2.05 (0.50-3.50) K/uL [place] # (Auto) 1.77 H (0.00-1.00) K/uL Eos # (Auto) 0.04 (0.00-0.50) K/uL Baso # (Auto) 0.02 (0.00-0.20) K/uL Sodium 133 L (136-145) mmol/L Potassium 4.6 (3.5-5.1) mmol/L Chloride 100 (98-107) mmol/L Carbon Dioxide 23.6 (21.0-32.0) mmol/L BUN 20 H (7-18) mg/dL Creatinine 1.20 H (0.51-1.17) mg/dL Est Cr Clr Drug Dosing 67.52 mL/min Estimated GFR (MDRD) > 60 mL/min Glucose 224 H (74-106) mg/dL POC Glucose 234 H (65-110) mg/dl Calcium 8.4 L (8.5-10.1) mg/dL Total Bilirubin 0.7 (0.2-1.0) mg/dL AST 12 L (15-37) U/L ALT 31 (12-78) U/L Alkaline Phosphatase 80 (46-116) IU/L Total Protein 7.1 (6.4-8.2) g/dL Albumin 3.2 L (3.4-5.0) g/dL 11/25/17 Range/Units 11:24 WBC (4.0-10.2) K/uL RBC (4.33-5.41) M/uL Hgb (13.1-16.8) g/dL Hct (39.0-49.0) % MCV (84.0-98.0) fL MCH (28.2-33.3) pg MCHC (31.7-36.0) g/dL RDW (11.2-14.1) % Plt Count (150-350) K/uL Neut % (Auto) (45.0-80.0) % Lymph % (Auto) (10.0-50.0) % [place] % (Auto) (2.0-14.0) % Eos % (Auto) (0.0-5.0) % Baso % (Auto) (0.0-2.0) % Neut # (Auto) (1.40-7.00) K/uL Lymph # (Auto) (0.50-3.50) K/uL [place] # (Auto) (0.00-1.00) K/uL Eos # (Auto) (0.00-0.50) K/uL Baso # (Auto) (0.00-0.20) K/uL Sodium (136-145) mmol/L Potassium (3.5-5.1) mmol/L Chloride (98-107) mmol/L Carbon Dioxide (21.0-32.0) mmol/L BUN (7-18) mg/dL Creatinine (0.51-1.17) mg/dL Est Cr Clr Drug Dosing mL/min Estimated GFR (MDRD) mL/min Glucose (74-106) mg/dL POC Glucose 221 H (65-110) mg/dl Calcium (8.5-10.1) mg/dL Total Bilirubin (0.2-1.0) mg/dL AST (15-37) U/L ALT (12-78) U/L Alkaline Phosphatase (46-116) IU/L Total Protein (6.4-8.2) g/dL Albumin (3.4-5.0) g/dL Med Orders - Current: Current Medications Alfuzosin HCl (Uroxatral) 10 mg PO [facility] Last Admin: 11/25/17 08:59 Dose: 10 mg Amlodipine Besylate (Norvasc) 5 mg PO [facility] Last Admin: 11/25/17 08:58 Dose: 5 mg Diazepam (Valium) 5 mg IVPUSH Q6H PRN PRN Reason: Spasms Last Admin: 11/24/17 08:54 Dose: 5 mg Escitalopram Oxalate (Lexapro) 20 mg PO [facility] Last Admin: 11/25/17 08:58 Dose: 20 mg Glipizide (Glucotrol Xl) 2.5 mg PO [facility] Last Admin: 11/25/17 08:56 Dose: 2.5 mg Heparin Sodium (Porcine) (Heparin Lock Flush 100 Units/Ml) 500 units FLUSH ASDIRECTED PRN PRN Reason: Keep Vein Open Ketorolac Tromethamine (Toradol) 30 mg IVPUSH Q6H PRN PRN Reason: Pain Stop: 11/28/17 20:17 Last Admin: 11/25/17 07:02 Dose: 30 mg Lisinopril (Prinivil) 10 mg PO QAM [facility] Last Admin: 11/25/17 08:59 Dose: 10 mg Morphine Sulfate (Morphine) 2 mg SUBCUT Q1H PRN PRN Reason: Pain Last Admin: 11/25/17 05:47 Dose: 2 mg Morphine Sulfate (Morphine) 4 mg IVPUSH Q2H PRN PRN Reason: Pain (severe 7-10) Last Admin: 11/24/17 17:49 Dose: 4 mg Omeprazole (Omeprazole) 20 mg PO [facility]ID[facility] Last Admin: 11/25/17 08:55 Dose: 20 mg Ondansetron HCl (Zofran) 4 mg IVPUSH Q6H PRN PRN Reason: Nausea/Vomiting Last Admin: 11/24/17 08:11 Dose: 4 mg Sodium Chloride (Saline Flush) 10 ml FLUSH ASDIRECTED PRN PRN Reason: Keep Vein Open Last Admin: 11/25/17 07:05 Dose: 10 ml Tamsulosin HCl (Flomax) 0.4 mg PO DAILY@0900 [facility] Last Admin: 11/25/17 08:56 Dose: 0.4 mg Discontinued Medications Diazepam (Valium) 5 mg IVPUSH ONETIME ONE Stop: 11/23/17 21:26 Last Admin: 11/23/17 21:44 Dose: 5 mg Hydromorphone HCl (Dilaudid) 1 mg IVPUSH ONETIME ONE Stop: 11/23/17 20:05 Last Admin: 11/23/17 20:23 Dose: 1 mg Sodium Chloride (Normal Saline) 500 mls @ 500 mls/hr IV ONETIME ONE Stop: 11/23/17 19:47 Last Admin: 11/23/17 19:45 Dose: 500 mls/hr Sodium Chloride (Normal Saline) 1,000 mls @ 125 mls/hr IV ASDIRECTED [facility] Stop: 11/24/17 20:18 Last Admin: 11/24/17 13:21 Dose: 125 mls/hr Iopamidol (Isovue-300 (61%)) 100 ml IVPUSH ONETIME ONE Stop: 11/24/17 08:04 Last Admin: 11/24/17 09:01 Dose: 100 ml Ketorolac Tromethamine (Toradol) 30 mg IVPUSH ONETIME ONE Stop: 11/23/17 17:24 Last Admin: 11/23/17 17:34 Dose: 30 mg Morphine Sulfate (Morphine) 5 mg IVPUSH ONETIME ONE Stop: 11/23/17 17:52 Last Admin: 11/23/17 18:01 Dose: 5 mg Morphine Sulfate (Morphine) 5 mg IM ONETIME ONE Stop: 11/23/17 19:26 Last Admin: 11/23/17 19:42 Dose: 5 mg Morphine Sulfate (Morphine) 5 mg IVPUSH ONETIME ONE Stop: 11/23/17 21:27 Last Admin: 11/23/17 21:44 Dose: 5 mg Ondansetron HCl (Zofran) 4 mg IVPUSH ONETIME ONE Stop: 11/23/17 17:24 Last Admin: 11/23/17 17:38 Dose: 4 mg Tamsulosin HCl (Flomax) 0.4 mg PO ONETIME ONE Stop: 11/23/17 18:03 Last Admin: 11/23/17 18:05 Dose: 0.4 mg - Exam Quality Assessment: Central Line/PICC ( location left chest wall) General: Alert, Oriented, Cooperative, No Acute Distress HEENT: Pupils Equal, Pupils Reactive, EOMI, Mucous Membr. Moist/[place] Neck: Supple Lungs: Clear to Auscultation, Normal Respiratory Effort Cardiovascular: Regular Rate, Regular Rhythm GI/Abdominal Exam: Normal Bowel Sounds, Soft, Non-Tender, No Organomegaly, No Distention, No Mass (Male) Exam: Deferred Back Exam: Normal Inspection Extremities: Normal Inspection, Normal Range of Motion, Non-Tender, No Pedal Edema Skin: Warm, Dry, Intact Neurological: No New Focal Deficit Psy/Mental Status: Alert, Normal Affect, Normal Mood - Problem List & Annotations (1) Kidney stone on left side SNOMED Code(s): 74202091 Code(s): N20.0 - CALCULUS OF KIDNEY Status: Acute Priority: High Current Visit: Yes (2) Abdominal pain SNOMED Code(s): 55463826 Code(s): R10.9 - UNSPECIFIED ABDOMINAL PAIN Status: Acute Current Visit: Yes (3) Crohn's disease SNOMED Code(s): 99125373 Code(s): K50.90 - CROHN'S DISEASE, UNSPECIFIED, WITHOUT COMPLICATIONS Status: Acute Priority: Medium Current Visit: Yes Annotation/Comment:: Excellent control at this time by patient history especially after changing to a gluten-free diet with recent intentional weight loss for better control of his diet. (4) Hematuria SNOMED Code(s): 93313850 Code(s): R31.9 - HEMATURIA, UNSPECIFIED Status: Acute Priority: High Current Visit: Yes Onset Date: ~11/23/17 Annotation/Comment:: Greater than 100 RBC, minimal WBC. (5) Left flank pain SNOMED Code(s): 253623191 Code(s): R10.9 - UNSPECIFIED ABDOMINAL PAIN Status: Acute Current Visit: Yes Onset Date: ~11/23/17 Annotation/Comment:: Left flank/side discomfort today. (6) Abdominal pain SNOMED Code(s): 71669860 Code(s): R10.9 - UNSPECIFIED ABDOMINAL PAIN Status: Acute Priority: High Current Visit: No (7) Diabetes mellitus type 2 SNOMED Code(s): 95152843 Code(s): E11.9 - TYPE 2 DIABETES MELLITUS WITHOUT COMPLICATIONS Status: Acute Priority: Medium Current Visit: No Annotation/Comment:: Under good control after recent weight loss as above with patient currently taking Accu- Cheks on a q. weekly basis (8) HTN, Benign hypertension SNOMED Code(s): 55603012 Code(s): I10 - ESSENTIAL (PRIMARY) HYPERTENSION Status: Acute Priority: High Current Visit: No Annotation/Comment:: Elevated tonight. Patient uncomfortable. Will continue to monitor for trends. - Problem List Review Problem List Initiated/Reviewed/Updated: Yes - My Orders Last 24 Hours: My Active Orders 11/24/17 15:33 Heparin Sodium [Heparin Lock Flush 100 Units/ML] 500 units FLUSH ASDIRECTED PRN 11/24/17 Dinner Regular Diet [DIET] 11/25/17 15:26 Discontinue Saline Lock [Peripheral IV Discontinue] [OM.PC] Routine - Plan Plan:: 11/24/17 Ronald Hurley MD Still with pain LLQ but slight improvement. CT scan kidney stone has probably just passed through. Advance diet. Continue IV fluids and IV toradol. 11/25/17 Ronald Hurley MD Feels much better. Home today.
--- NOTE | 2017-11-25 15:53 | PCM.DCSUM1 ---
Discharge Summary - Discharge Data Discharge Date: 11/25/17 Discharge Disposition: Home, Self-Care 01 Condition: Good - Discharge Diagnosis/Problem(s) (1) Kidney stone on left side SNOMED Code(s): 37425118 ICD Code: N20.0 - CALCULUS OF KIDNEY Status: Acute Priority: High Current Visit: Yes (2) Abdominal pain SNOMED Code(s): 98014328 ICD Code: R10.9 - UNSPECIFIED ABDOMINAL PAIN Status: Acute Current Visit : Yes (3) Crohn's disease SNOMED Code(s): 97339458 ICD Code: K50.90 - CROHN'S DISEASE, UNSPECIFIED, WITHOUT COMPLICATIONS Status: Acute Priority: Medium Current Visit: Yes Problem Details: Excellent control at this time by patient history especially after changing to a gluten-free diet with recent intentional weight loss for better control of his diet. (4) Hematuria SNOMED Code(s): 52401273 ICD Code: R31.9 - HEMATURIA, UNSPECIFIED Status: Acute Priority: High Current Visit: Yes Onset Date: ~11/23/17 Problem Details: Greater than 100 RBC, minimal WBC. (5) Left flank pain SNOMED Code(s): 978922201 ICD Code: R10.9 - UNSPECIFIED ABDOMINAL PAIN Status: Acute Current Visit : Yes Onset Date: ~11/23/17 Problem Details: Left flank/side discomfort today. (6) Abdominal pain SNOMED Code(s): 80771998 ICD Code: R10.9 - UNSPECIFIED ABDOMINAL PAIN Status: Acute Priority: High Current Visit: No (7) Diabetes mellitus type 2 SNOMED Code(s): 13619975 ICD Code: E11.9 - TYPE 2 DIABETES MELLITUS WITHOUT COMPLICATIONS Status: Acute Priority: Medium Current Visit: No Problem Details: Under good control after recent weight loss as above with patient currently taking Accu- Cheks on a q. weekly basis (8) HTN, Benign hypertension SNOMED Code(s): 03995579 ICD Code: I10 - ESSENTIAL (PRIMARY) HYPERTENSION Status: Acute Priority: High Current Visit: No Problem Details: Elevated tonight. Patient uncomfortable. Will continue to monitor for trends. - Patient Instructions Diet: Diabetic Diet Activity: As Tolerated Driving: May Drive Today Showering/Bathing: May Shower - Discharge Plan Home Medications: Home Meds Alfuzosin HCl [Alfuzosin] 10 mg PO QAM 10/15/13 [History] Lisinopril 10 mg PO QAM 10/15/13 [History] glipiZIDE [Glipizide Xl] 2.5 mg PO QAM 10/15/13 [History] Denosumab [Prolia] 60 mg SUBCUT Q180D 03/06/14 [History] InFLIXimab [Remicade] 700 mg IV Q56D 03/06/14 [History] amLODIPine [Norvasc] 5 mg PO QAM 07/27/15 [History] Escitalopram [Lexapro] 20 mg PO QAM 08/20/15 [History] Omeprazole 20 mg PO BIDAC 04/13/17 [History] Forms: ED Department Discharge Referrals: Sheets-Nickie Hurley MD [Primary Care Provider] - - Discharge Summary/Plan Comment DC Time >30 min.: No - Patient Data Vitals - Most Recent: Last Vital Signs Temp 97.8 F 11/25/17 11:09 Pulse 85 11/25/17 11:09 Resp 16 11/25/17 11:09 BP 126/74 11/25/17 11:09 Pulse Ox 97 11/25/17 11:09 Weight - Most Recent: 219 lb 6.394 oz I&O - Last 24 hours: Intake & Output 11/25/17 11/25/17 11/25/17 06:59 14:59 22:59 Intake Total 1230 Output Total 400 500 Balance -400 730 Lab Results - Last 24 hrs: Laboratory Results - last 24 hr 11/24/17 11/24/17 11/24/17 Range/Units 11:32 17:06 20:58 WBC (4.0-10.2) K/uL RBC (4.33-5.41) M/uL Hgb (13.1-16.8) g/dL Hct (39.0-49.0) % MCV (84.0-98.0) fL MCH (28.2-33.3) pg MCHC (31.7-36.0) g/dL RDW (11.2-14.1) % Plt Count (150-350) K/uL Neut % (Auto) (45.0-80.0) % Lymph % (Auto) (10.0-50.0) % [place] % (Auto) (2.0-14.0) % Eos % (Auto) (0.0-5.0) % Baso % (Auto) (0.0-2.0) % Neut # (Auto) (1.40-7.00) K/uL Lymph # (Auto) (0.50-3.50) K/uL [place] # (Auto) (0.00-1.00) K/uL Eos # (Auto) (0.00-0.50) K/uL Baso # (Auto) (0.00-0.20) K/uL Sodium (136-145) mmol/L Potassium (3.5-5.1) mmol/L Chloride (98-107) mmol/L Carbon Dioxide (21.0-32.0) mmol/L BUN (7-18) mg/dL Creatinine (0.51-1.17) mg/dL Est Cr Clr Drug Dosing mL/min Estimated GFR (MDRD) mL/min Glucose (74-106) mg/dL POC Glucose 174 H 182 H 209 H (65-110) mg/dl Calcium (8.5-10.1) mg/dL Total Bilirubin (0.2-1.0) mg/dL AST (15-37) U/L ALT (12-78) U/L Alkaline Phosphatase (46-116) IU/L Total Protein (6.4-8.2) g/dL Albumin (3.4-5.0) g/dL 11/25/17 11/25/17 11/25/17 Range/Units 06:38 06:38 08:01 WBC 20.5 H (4.0-10.2) K/uL RBC 4.54 (4.33-5.41) M/uL Hgb 13.6 (13.1-16.8) g/dL Hct 41.5 (39.0-49.0) % MCV 91.4 (84.0-98.0) fL MCH 30.0 (28.2-33.3) pg MCHC 32.8 (31.7-36.0) g/dL RDW 13.6 (11.2-14.1) % Plt Count 207 (150-350) K/uL Neut % (Auto) 81.1 H (45.0-80.0) % Lymph % (Auto) 10.0 (10.0-50.0) % [place] % (Auto) 8.6 (2.0-14.0) % Eos % (Auto) 0.2 (0.0-5.0) % Baso % (Auto) 0.1 (0.0-2.0) % Neut # (Auto) 16.59 H (1.40-7.00) K/uL Lymph # (Auto) 2.05 (0.50-3.50) K/uL [place] # (Auto) 1.77 H (0.00-1.00) K/uL Eos # (Auto) 0.04 (0.00-0.50) K/uL Baso # (Auto) 0.02 (0.00-0.20) K/uL Sodium 133 L (136-145) mmol/L Potassium 4.6 (3.5-5.1) mmol/L Chloride 100 (98-107) mmol/L Carbon Dioxide 23.6 (21.0-32.0) mmol/L BUN 20 H (7-18) mg/dL Creatinine 1.20 H (0.51-1.17) mg/dL Est Cr Clr Drug Dosing 67.52 mL/min Estimated GFR (MDRD) > 60 mL/min Glucose 224 H (74-106) mg/dL POC Glucose 234 H (65-110) mg/dl Calcium 8.4 L (8.5-10.1) mg/dL Total Bilirubin 0.7 (0.2-1.0) mg/dL AST 12 L (15-37) U/L ALT 31 (12-78) U/L Alkaline Phosphatase 80 (46-116) IU/L Total Protein 7.1 (6.4-8.2) g/dL Albumin 3.2 L (3.4-5.0) g/dL 11/25/17 Range/Units 11:24 WBC (4.0-10.2) K/uL RBC (4.33-5.41) M/uL Hgb (13.1-16.8) g/dL Hct (39.0-49.0) % MCV (84.0-98.0) fL MCH (28.2-33.3) pg MCHC (31.7-36.0) g/dL RDW (11.2-14.1) % Plt Count (150-350) K/uL Neut % (Auto) (45.0-80.0) % Lymph % (Auto) (10.0-50.0) % [place] % (Auto) (2.0-14.0) % Eos % (Auto) (0.0-5.0) % Baso % (Auto) (0.0-2.0) % Neut # (Auto) (1.40-7.00) K/uL Lymph # (Auto) (0.50-3.50) K/uL [place] # (Auto) (0.00-1.00) K/uL Eos # (Auto) (0.00-0.50) K/uL Baso # (Auto) (0.00-0.20) K/uL Sodium (136-145) mmol/L Potassium (3.5-5.1) mmol/L Chloride (98-107) mmol/L Carbon Dioxide (21.0-32.0) mmol/L BUN (7-18) mg/dL Creatinine (0.51-1.17) mg/dL Est Cr Clr Drug Dosing mL/min Estimated GFR (MDRD) mL/min Glucose (74-106) mg/dL POC Glucose 221 H (65-110) mg/dl Calcium (8.5-10.1) mg/dL Total Bilirubin (0.2-1.0) mg/dL AST (15-37) U/L ALT (12-78) U/L Alkaline Phosphatase (46-116) IU/L Total Protein (6.4-8.2) g/dL Albumin (3.4-5.0) g/dL Med Orders - Current: Current Medications Alfuzosin HCl (Uroxatral) 10 mg PO [facility] Last Admin: 11/25/17 08:59 Dose: 10 mg Amlodipine Besylate (Norvasc) 5 mg PO [facility] Last Admin: 11/25/17 08:58 Dose: 5 mg Diazepam (Valium) 5 mg IVPUSH Q6H PRN PRN Reason: Spasms Last Admin: 11/24/17 08:54 Dose: 5 mg Escitalopram Oxalate (Lexapro) 20 mg PO [facility] Last Admin: 11/25/17 08:58 Dose: 20 mg Glipizide (Glucotrol Xl) 2.5 mg PO [facility] Last Admin: 11/25/17 08:56 Dose: 2.5 mg Heparin Sodium (Porcine) (Heparin Lock Flush 100 Units/Ml) 500 units FLUSH ASDIRECTED PRN PRN Reason: Keep Vein Open Ketorolac Tromethamine (Toradol) 30 mg IVPUSH Q6H PRN PRN Reason: Pain Stop: 11/28/17 20:17 Last Admin: 11/25/17 07:02 Dose: 30 mg Lisinopril (Prinivil) 10 mg PO [facility] Last Admin: 11/25/17 08:59 Dose: 10 mg Morphine Sulfate (Morphine) 2 mg SUBCUT Q1H PRN PRN Reason: Pain Last Admin: 11/25/17 05:47 Dose: 2 mg Morphine Sulfate (Morphine) 4 mg IVPUSH Q2H PRN PRN Reason: Pain (severe 7-10) Last Admin: 11/24/17 17:49 Dose: 4 mg [facility] Last Admin: 11/25/17 08:55 Dose: 20 mg Ondansetron HCl (Zofran) 4 mg IVPUSH Q6H PRN PRN Reason: Nausea/Vomiting Last Admin: 11/24/17 08:11 Dose: 4 mg Sodium Chloride (Saline Flush) 10 ml FLUSH ASDIRECTED PRN PRN Reason: Keep Vein Open Last Admin: 11/25/17 07:05 Dose: 10 ml Tamsulosin HCl (Flomax) 0.4 mg PO DAILY@0900 [facility] Last Admin: 11/25/17 08:56 Dose: 0.4 mg Discontinued Medications Diazepam (Valium) 5 mg IVPUSH ONETIME ONE Stop: 11/23/17 21:26 Last Admin: 11/23/17 21:44 Dose: 5 mg Hydromorphone HCl (Dilaudid) 1 mg IVPUSH ONETIME ONE Stop: 11/23/17 20:05 Last Admin: 11/23/17 20:23 Dose: 1 mg Sodium Chloride (Normal Saline) 500 mls @ 500 mls/hr IV ONETIME ONE Stop: 11/23/17 19:47 Last Admin: 11/23/17 19:45 Dose: 500 mls/hr Sodium Chloride (Normal Saline) 1,000 mls @ 125 mls/hr IV ASDIRECTED GAETANO Stop: 11/24/17 20:18 Last Admin: 11/24/17 13:21 Dose: 125 mls/hr Iopamidol (Isovue-300 (61%)) 100 ml IVPUSH ONETIME ONE Stop: 11/24/17 08:04 Last Admin: 11/24/17 09:01 Dose: 100 ml Ketorolac Tromethamine (Toradol) 30 mg IVPUSH ONETIME ONE Stop: 11/23/17 17:24 Last Admin: 11/23/17 17:34 Dose: 30 mg Morphine Sulfate (Morphine) 5 mg IVPUSH ONETIME ONE Stop: 11/23/17 17:52 Last Admin: 11/23/17 18:01 Dose: 5 mg Morphine Sulfate (Morphine) 5 mg IM ONETIME ONE Stop: 11/23/17 19:26 Last Admin: 11/23/17 19:42 Dose: 5 mg Morphine Sulfate (Morphine) 5 mg IVPUSH ONETIME ONE Stop: 11/23/17 21:27 Last Admin: 11/23/17 21:44 Dose: 5 mg Ondansetron HCl (Zofran) 4 mg IVPUSH ONETIME ONE Stop: 11/23/17 17:24 Last Admin: 11/23/17 17:38 Dose: 4 mg Tamsulosin HCl (Flomax) 0.4 mg PO ONETIME ONE Stop: 11/23/17 18:03 Last Admin: 11/23/17 18:05 Dose: 0.4 mg *Q Meaningful Use (DIS) - VTE *Q VTE Criteria *Q: - Stroke *Q Stroke Criteria *Q: - AMI *Q AMI Criteria *Q:
== END 2017-11-25 16:15 | disposition home or self-care (01) ==
LOC: LL.ED 17:22 → LL.MS 18:35
PROVIDERS: ADMIT Emergency Medicine; ATTEND Family Medicine
DX: N20.0 Calculus of kidney (principal); R10.9 Unspecified abdominal pain; K50.90 Crohn's disease, unspecified, without complications; R31.9 Hematuria, unspecified; E11.9 Type 2 diabetes mellitus without complications; I10 Essential (primary) hypertension; Z88.0 Allergy status to penicillin; Z88.8 Allergy status to other drugs, medicaments and biological substances; Z79.899 Other long term (current) drug therapy
CPT/HCPCS: 36415; 74176; 74177; 80048; 80053; 81001; 82962; 83036; 85025; 96361; 96372; 96374; 96375; 96376; 99285; A9270-GY; G0378; J1170; J1885; J2270; J2405; J3360; J7030; J7040; J7050; Q9967

== ENCOUNTER 2019-06-18 16:55 | Emergency (ER) | payer OTHER ==
[~2019-06-18 16:55] MED LIST: Tamsulosin 0.4 MG Cap.ER PO SCH
[2019-06-18 16:59] VITALS: BP 142/93; PULSE 97
[2019-06-18] MEDS ORDERED: Ketorolac 60 MG/2 ML SDV IVPUSH ONE (17:10)
[2019-06-18] MEDS ORDERED: Sodium Chloride 0.9% 10 ML Syringe FLUSH PRN (17:10)
[2019-06-18] MEDS ORDERED: Tamsulosin 0.4 MG Cap.ER PO ONE (17:11)
--- NOTE | 2019-06-18 17:19 | EDM.PDOC ---
ED HPI GENERAL MEDICAL PROBLEM - General Chief Complaint: Genitourinary Problem Stated Complaint: "Kidney Stone" Time Seen by Provider: 06/18/19 17:00 Source of Information: Reports: Patient History Limitations: Reports: No Limitations - History of Present Illness INITIAL COMMENTS - FREE TEXT/NARRATIVE: Patient is a 48-year-old gentleman with known history of Crohn's disease comes in with chief complaint of left lower flank pain radiating forward at this time patient states that this feels more like his kidney stones. Onset: Today Duration: Hour(s):, Getting Worse Location: Reports: Abdomen Quality: Reports: Ache, Throbbing Severity: Moderate Improves with: Reports: None Worsens with: Reports: Movement Associated Symptoms: Reports: Nausea/Vomiting, Weakness Treatments [employer]: Reports: Acetaminophen Left Flank Pain Score (Numeric/FACES): 10 - Related Data Allergies Allergy/AdvReac Type Severity Reaction Status Date / Time atorvastatin calcium Allergy flushing Verified 06/18/19 16:56 [From Lipitor] Penicillins Allergy Rash Verified 06/18/19 16:56 Home Meds: Home Meds Alfuzosin HCl [Alfuzosin] 10 mg PO QAM 10/15/13 [History] Lisinopril 10 mg PO QAM 10/15/13 [History] glipiZIDE [Glipizide Xl] 5 mg PO QAM 10/15/13 [History] Denosumab [Prolia] 60 mg SUBCUT Q180D 03/06/14 [History] amLODIPine [Norvasc] 5 mg PO QAM 07/27/15 [History] Escitalopram [Lexapro] 20 mg PO QAM 08/20/15 [History] Omeprazole 20 mg PO BIDAC 04/13/17 [History] Fenofibrate,Micronized [Fenofibrate] 1 cap PO BEDTIME 06/02/18 [History] Fexofenadine/Pseudoephedrine [[place]ou[place]-D 12 Hour Tablet] 1 tab PO BID 10/16/18 [ History] buPROPion [Wellbutrin] 15 mg PO DAILY 10/16/18 [History] Adalimumab [Humira Crohn's] 40 mg SQ Q14D 03/02/19 [History] Gabapentin [Neurontin] 300 mg PO TID 04/04/19 [History] Past Medical History HEENT History: Reports: Impaired Vision Cardiovascular History: Reports: High Cholesterol, Hypertension Gastrointestinal History: Reports: Chronic Constipation, Chronic Diarrhea, GERD , Inflammatory Bowel Disease, Other (See Below) Other Gastrointestinal History: Crohns disease, Colitis, Diverticulitis Genitourinary History: Reports: Prostate Disorder Musculoskeletal History: Reports: Back Pain, Chronic, Osteoarthritis, Osteoporosis Psychiatric History: Reports: Anxiety, Depression Endocrine/Metabolic History: Reports: Diabetes, Type II, Osteoporosis - Infectious Disease History Infectious Disease History: Reports: Chicken Pox - Past Surgical History GI Surgical History: Reports: Colonoscopy, Other (See Below) Social & Family History - Family History Other Dermatologic Family History: no changes - Tobacco Use Smoking Status *Q: Never Smoker - Caffeine Use Caffeine Use: Reports: Soda - Living Situation & Occupation Living situation: Reports: , with Family Occupation: Employed ED ROS GENERAL - Review of Systems Review Of Systems: See Below Constitutional: Reports: Fatigue HEENT: Reports: No Symptoms Respiratory: Reports: No Symptoms Cardiovascular: Reports: No Symptoms Endocrine: Reports: No Symptoms GI/Abdominal: Reports: No Symptoms : Reports: Flank Pain, Frequency, Urgency Musculoskeletal: Reports: No Symptoms Skin: Reports: No Symptoms ED EXAM, RENAL/ - Physical Exam Exam: See Below Exam Limited By: No Limitations General Appearance: Alert, WD/WN, No Apparent Distress Ears: Normal External Exam, Normal Canal, Hearing Grossly Normal, Normal TMs Nose: Normal Inspection, Normal Mucosa, No Blood Throat/Mouth: Normal Inspection, Normal Lips, Normal Teeth, Normal Gums, Normal Oropharynx, Normal Voice, No Airway Compromise Head: Atraumatic, Normocephalic Neck: Normal Inspection, Supple, Non-Tender, Full Range of Motion Respiratory/Chest: No Respiratory Distress, Lungs Clear, Normal Breath Sounds, No Accessory Muscle Use, Chest Non-Tender Cardiovascular: Normal Peripheral Pulses, Regular Rate, Rhythm, No Edema, No Gallop, No JVD, No Murmur, No Rub GI/Abdominal: Tender, Other (Left CVA tenderness) Extremities: Normal Inspection, Normal Range of Motion, Non-Tender, Normal Capillary Refill, No Pedal Edema Neurological: Alert, Oriented, CN II-XII Intact, Normal Cognition, Normal Gait, Normal Reflexes, No Motor/Sensory Deficits Psychiatric: Normal Affect, Normal Mood Lymphatic: No Adenopathy Course - Vital Signs Last Recorded V/S: Last Vital Signs Temp 97.6 F 06/18/19 16:58 Pulse 97 06/18/19 16:58 Resp 18 06/18/19 16:58 BP 142/93 H 06/18/19 16:58 Pulse Ox 100 06/18/19 16:58 - Orders/Labs/Meds Orders: Active Orders 24 hr Category Date Time Status Abdomen Pelvis wo Cont [CT] Stat Exams 06/18/19 17:08 Ordered Sodium Chloride 0.9% [Saline Flush] Med 06/18/19 17:10 Ordered 10 ml FLUSH ASDIRECTED PRN Tamsulosin [Flomax] Med 06/19/19 08:30 Ordered 0.4 mg PO BIDPC Saline Lock Insert [OM.PC] Routine Oth 06/18/19 17:10 Ordered Medication Orders Sodium Chloride (Saline Flush) 10 ml FLUSH ASDIRECTED PRN PRN Reason: Keep Vein Open Last Admin: 06/18/19 17:26 Dose: 10 ml Tamsulosin HCl (Flomax) 0.4 mg PO BIDPC GAETANO Stop: 06/20/19 18:31 Labs: Laboratory Tests 06/18/19 06/18/19 06/18/19 Range/Units 17:04 17:20 17:20 WBC 11.4 H (4.0-10.2) K/uL RBC 5.05 (4.33-5.41) M/uL Hgb 14.6 (13.1-16.8) g/dL Hct 43.5 (39.0-49.0) % MCV 86.1 (84.0-98.0) fL MCH 28.9 (28.2-33.3) pg MCHC 33.6 (31.7-36.0) g/dL RDW 15.6 H (11.2-14.1) % Plt Count 250 (150-350) K/uL Neut % (Auto) 67.3 (45.0-80.0) % Lymph % (Auto) 23.5 (10.0-50.0) % [place] % (Auto) 7.9 (2.0-14.0) % Eos % (Auto) 1.0 (0.0-5.0) % Baso % (Auto) 0.3 (0.0-2.0) % Neut # (Auto) 7.67 H (1.40-7.00) K/uL Lymph # (Auto) 2.67 (0.50-3.50) K/uL [place] # (Auto) 0.90 (0.00-1.00) K/uL Eos # (Auto) 0.11 (0.00-0.50) K/uL Baso # (Auto) 0.03 (0.00-0.20) K/uL Sodium 138 (136-145) mmol/L Potassium 4.1 (3.5-5.1) mmol/L Chloride 102 (98-107) mmol/L Carbon Dioxide 25.5 (21.0-32.0) mmol/L BUN 21 H (7-18) mg/dL Creatinine 1.24 H (0.51-1.17) mg/dL Est Cr Clr Drug Dosing 69.59 mL/min Estimated GFR (MDRD) > 60 mL/min Glucose 189 H (74-106) mg/dL Calcium 8.9 (8.5-10.1) mg/dL Total Bilirubin 0.5 (0.2-1.0) mg/dL AST 16 (15-37) U/L ALT 40 (12-78) U/L Alkaline Phosphatase 79 (46-116) IU/L Total Protein 7.7 (6.4-8.2) g/dL Albumin 3.9 (3.4-5.0) g/dL Specimen Type Urinvoid Urine Color Yellow Urine Appearance Clear Urine pH 5.0 (5.0-9.0) Ur Specific [place] 1.025 (1.005-1.030) Urine Protein Trace H (NEGATIVE) mg/dL Urine Glucose (UA) Negative (NEGATIVE) mg/dL Urine Ketones Trace H (NEGATIVE) mg/dL Urine Occult Blood Large H (NEGATIVE) Urine Nitrite Negative (NEGATIVE) Urine Bilirubin Negative (NEGATIVE) Urine Urobilinogen 0.2 (0.2-1.0) E.U./dL Ur Leukocyte Esterase Negative (NEGATIVE) Urine RBC >100 H /HPF Urine WBC 0-5 /HPF Ur Epithelial Cells Occasional /LPF Urine Bacteria Few (NONE TO FEW) /HPF Meds: Medications Generic Name Dose Route Start Last Admin Trade Name Freq PRN Reason Stop Dose Admin Sodium Chloride 10 ml 06/18/19 17:10 06/18/19 17:26 Saline Flush FLUSH 10 ml ASDIRECTED PRN Administration Keep Vein Open Tamsulosin HCl 0.4 mg 06/19/19 08:30 Flomax PO 06/20/19 18:31 BIDPC GAETANO Discontinued Medications Generic Name Dose Route Start Last Admin Trade Name Jose PRN Reason Stop Dose Admin Ketorolac Tromethamine 60 mg 06/18/19 17:10 06/18/19 17:23 Toradol IVPUSH 06/18/19 17:11 60 mg ONETIME ONE Administration Tamsulosin HCl 0.4 mg 06/18/19 17:11 06/18/19 17:24 Flomax PO 06/18/19 17:12 0.4 mg ONETIME ONE Administration Departure - Departure Time of Disposition: 18:45 Disposition: Home, Self-Care 01 Condition: Fair Clinical Impression: Left flank pain, Nephrolithiasis - Discharge Information *PRESCRIPTION DRUG MONITORING PROGRAM REVIEWED*: No *COPY OF PRESCRIPTION DRUG MONITORING REPORT IN PATIENT FRIDA: No Referrals: Silvina Garsia PA [Primary Care Provider] - Forms: ED Department Discharge Care Plan Goals: Patient will be sent home on Toradol 10 mg every 6 hours for pain control and Flomax 4 mg 1 tablet twice a day for up to 10 days - My Orders Last 24 Hours: My Active Orders 06/18/19 17:08 Abdomen Pelvis wo Cont [CT] Stat 06/18/19 17:10 Sodium Chloride 0.9% [Saline Flush] 10 ml FLUSH ASDIRECTED PRN Saline Lock Insert [OM.PC] Routine 06/19/19 08:30 Tamsulosin [Flomax] 0.4 mg PO BIDPC - Assessment/Plan Last 24 Hours: My Active Orders 06/18/19 17:08 Abdomen Pelvis wo Cont [CT] Stat 06/18/19 17:10 Sodium Chloride 0.9% [Saline Flush] 10 ml FLUSH ASDIRECTED PRN Saline Lock Insert [OM.PC] Routine 06/19/19 08:30 Tamsulosin [Flomax] 0.4 mg PO BIDPC
[2019-06-18 17:59] LABS: CHLORIDE,CL 102 mmol/L (98-107); SODIUM,NA 138 mmol/L (136-145)
[2019-06-18] MEDS ORDERED: Tamsulosin 0.4 MG Cap.ER ONE (19:04)
[2019-06-19] MEDS ORDERED: Tamsulosin 0.4 MG Cap.ER PO SCH (08:30)
== END 2019-06-18 19:10 | disposition home or self-care (01) ==
LOC: LL.ED 16:55
DX: N20.0 Calculus of kidney (principal); E78.00 Pure hypercholesterolemia, unspecified; I10 Essential (primary) hypertension; K21.9 Gastro-esophageal reflux disease without esophagitis; F41.9 Anxiety disorder, unspecified; F32.9 Major depressive disorder, single episode, unspecified; E11.9 Type 2 diabetes mellitus without complications; Z88.0 Allergy status to penicillin; Z88.8 Allergy status to other drugs, medicaments and biological substances; Z79.899 Other long term (current) drug therapy; Z79.84 Long term (current) use of oral hypoglycemic drugs
CPT/HCPCS: 36415; 74176; 80053; 81001; 85025; 96374; 99284; A9270; J1885

== ENCOUNTER 2020-01-28 14:49 | Emergency (ER) | payer OTHER ==
[2020-01-28] MEDS: Sodium Chloride 0.9% 1,000 ML IV ONE ×2 (15:42→16:51)
[2020-01-28] MEDS: amLODIPine 5 MG Tab PO ONE (15:48)
[2020-01-28] MEDS: Lisinopril 10 MG Tab PO ONE (15:49)
[2020-01-28 15:52] LABS: CHLORIDE,CL 100 mmol/L (98-107); SODIUM,NA 138 mmol/L (136-145)
--- NOTE | 2020-01-28 16:32 | EDM.PDOC ---
ED HPI GENERAL MEDICAL PROBLEM - General Chief Complaint: General Stated Complaint: DIARRHEA, WEAKNESS Time Seen by Provider: 01/28/20 15:03 Source of Information: Reports: Patient History Limitations: Reports: No Limitations - History of Present Illness INITIAL COMMENTS - FREE TEXT/NARRATIVE: Patient comes to ER requesting IV fluids. Reports feeling dehydrated/weak due to loose stools. Hx of Crohn's. Was seen yesterday at [facility] and evaluated. Workup included CT of abdomen. CT was unremarkable as was exam/labs. He has had 5 days of loose stools. No vomiting but has increased burping. No fevers/ chills. Some abdominal discomfort diffusely. No other acute changes overall. He is currently avoiding eating solid food. Has not had his morning meds, including 2 HTN medications. Left Lower Abdomen Pain Score (Numeric/FACES): 3 - Related Data Allergies Allergy/AdvReac Type Severity Reaction Status Date / Time atorvastatin calcium Allergy flushing Verified 09/17/19 10:07 [From Lipitor] oxycodone Allergy Itching Verified 01/28/20 14:57 Penicillins Allergy Rash Verified 09/17/19 10:07 Home Meds: Home Meds Alfuzosin HCl [Alfuzosin] 10 mg PO QAM 10/15/13 [History] Lisinopril 10 mg PO QAM 10/15/13 [History] Denosumab [Prolia] 60 mg SUBCUT Q180D 03/06/14 [History] amLODIPine [Norvasc] 5 mg PO QAM 07/27/15 [History] Escitalopram [Lexapro] 20 mg PO QAM 08/20/15 [History] Fenofibrate,Micronized [Fenofibrate] 134 mg PO BEDTIME 06/02/18 [History] Fexofenadine/Pseudoephedrine [Soumya-D 12 Hour] 60 - 120 mg PO BID 10/16/18 [ History] Adalimumab [Humira Pen Crohn's-Uc-Hs] 40 mg SQ Q14D 03/02/19 [History] glipiZIDE [Glipizide ER] 5 mg PO DAILY 06/24/19 [History] Aspirin 325 mg PO DAILY 01/28/20 [History] Calcium Carbonate 500 mg PO BIDMEALS 01/28/20 [History] Cyclobenzaprine [Flexeril] 10 mg PO BEDTIME PRN 01/28/20 [History] Hydrocodone/Acetaminophen [Hydrocodon-Acetaminophen 5-325] 1 - 2 each PO Q6HR PRN 01/28/20 [History] Lansoprazole [Prevacid] 30 mg PO BIDAC 01/28/20 [History] Lisinopril [Zestril] 5 mg PO DAILY@199901/28/20 [History] Semaglutide [Ozempic] 1 mg SUBCUT WEEKLY 01/28/20 [History] buPROPion [buPROPion XL] 150 mg PO BEDTIME 01/28/20 [History] glipiZIDE [Glipizide ER] 10 mg PO DAILY 01/28/20 [History] Past Medical History HEENT History: Reports: Impaired Vision Cardiovascular History: Reports: High Cholesterol, Hypertension Gastrointestinal History: Reports: Chronic Constipation, Chronic Diarrhea, GERD , Inflammatory Bowel Disease, Other (See Below) Other Gastrointestinal History: Crohns disease, Colitis, Diverticulitis Genitourinary History: Reports: Prostate Disorder Musculoskeletal History: Reports: Back Pain, Chronic, Osteoarthritis, Osteoporosis Psychiatric History: Reports: Anxiety, Depression Endocrine/Metabolic History: Reports: Diabetes, Type II, Osteoporosis - Infectious Disease History Infectious Disease History: Reports: Chicken Pox - Past Surgical History GI Surgical History: Reports: Colonoscopy, Other (See Below) Musculoskeletal Surgical History: Reports: Shoulder Surgery Other Musculoskeletal Surgeries/Procedures:: R shoulder surgery Social & Family History - Family History Other Dermatologic Family History: no changes - Tobacco Use Smoking Status *Q: Never Smoker - Caffeine Use Caffeine Use: Reports: Soda (3 Mountain Dews daily) - Alcohol Use Alcohol Use History: Yes - Recreational Drug Use Recreational Drug Use: No Drug Use in Last 12 Months: No - Living Situation & Occupation Living situation: Reports: , with Family Occupation: Employed [employer] [facility] - Review of Systems Review Of Systems: See Below Constitutional: Reports: Weakness, Fatigue. Denies: Fever, Chills, Malaise, Night Sweats, Diaphoresis, Weight Loss, Weight Gain HEENT: Reports: No Symptoms Respiratory: Reports: No Symptoms Cardiovascular: Reports: No Symptoms GI/Abdominal: Reports: Abdominal Pain, Diarrhea, Flatus. Denies: Black Stool, Bloody Stool, Constipation, Decreased Appetite, Difficulty Swallowing, Distension, Hematemesis, Nausea, Vomiting : Reports: No Symptoms Musculoskeletal: Reports: No Symptoms Skin: Reports: No Symptoms Neurological: Reports: No Symptoms Psychiatric: Reports: No Symptoms ED EXAM, GENERAL - Physical Exam Exam: See Below Exam Limited By: No Limitations General Appearance: Alert, No Apparent Distress, Obese Eye Exam: Bilateral Eye: EOMI, PERRL Ears: Normal External Exam, Hearing Grossly Normal Nose: No: Nasal Deformity, Nasal Swelling, Nasal Drainage Throat/Mouth: Normal Lips, Normal Voice, No Airway Compromise Head: Atraumatic, Normocephalic Neck: Normal Inspection, Supple, Non-Tender, Full Range of Motion Respiratory/Chest: No Respiratory Distress, Lungs Clear, Normal Breath Sounds Cardiovascular: Normal Peripheral Pulses, Regular Rate, Rhythm, No Murmur GI/Abdominal: No Distention, Tender (mild tenderness diffusely), Abnormal Bowel Sounds (decreased bowel sounds all quadrants). No: Guarding, Rigid, Rebound (Male) Exam: Deferred Rectal (Males) Exam: Deferred Back Exam: No: CVA Tenderness (L), CVA Tenderness (R) Extremities: Normal Range of Motion Neurological: Alert, Oriented, Normal Cognition, Normal Gait, No Motor/Sensory Deficits Psychiatric: Normal Affect, Normal Mood Skin Exam: Warm, Dry, Intact, Normal Color Course - Vital Signs Last Recorded V/S: Last Vital Signs Temp 36.3 C 01/28/20 14:50 Pulse 95 01/28/20 18:19 Resp 16 01/28/20 14:50 BP 151/97 H 01/28/20 18:19 Pulse Ox 99 01/28/20 14:50 - Orders/Labs/Meds Orders: Active Orders 24 hr Category Date Time Status Implanted Port Access [RC] ASDIRECTED Care 01/28/20 17:05 Active Labs: Laboratory Tests 01/28/20 01/28/20 01/28/20 Range/Units 14:25 15:25 17:00 WBC 8.8 (4.0-10.2) K/uL RBC 5.11 (4.33-5.41) M/uL Hgb 14.6 (13.1-16.8) g/dL Hct 44.4 (39.0-49.0) % MCV 86.9 (84.0-98.0) fL MCH 28.6 (28.2-33.3) pg MCHC 32.9 (31.7-36.0) g/dL RDW 13.7 (11.2-14.1) % Plt Count 292 (150-350) K/uL Neut % (Auto) 54.4 (45.0-80.0) % Lymph % (Auto) 32.5 (10.0-50.0) % [place]ven % (Auto) 9.2 (2.0-14.0) % Eos % (Auto) 3.3 (0.0-5.0) % Baso % (Auto) 0.6 (0.0-2.0) % Neut # (Auto) 4.82 (1.40-7.00) K/uL Lymph # (Auto) 2.87 (0.50-3.50) K/uL Craven # (Auto) 0.81 (0.00-1.00) K/uL Eos # (Auto) 0.29 (0.00-0.50) K/uL Baso # (Auto) 0.05 (0.00-0.20) K/uL Sodium 138 (136-145) mmol/L Potassium 4.0 (3.5-5.1) mmol/L Chloride 100 (98-107) mmol/L Carbon Dioxide 24.8 (21.0-32.0) mmol/L BUN 12 (7-18) mg/dL Creatinine 0.90 (0.51-1.17) mg/dL Est Cr Clr Drug Dosing 94.87 mL/min Estimated GFR (MDRD) > 60 mL/min Glucose 122 H (74-106) mg/dL Calcium 9.3 (8.5-10.1) mg/dL Magnesium 1.9 (1.8-2.4) mg/dL Total Bilirubin 0.5 (0.2-1.0) mg/dL AST 20 (15-37) U/L ALT 39 (12-78) U/L Alkaline Phosphatase 97 (46-116) IU/L Total Protein 8.2 (6.4-8.2) g/dL Albumin 3.7 (3.4-5.0) g/dL Specimen Type Urinblad Urine Color Dark yellow Urine Appearance Slightly cloudy Urine pH 7.0 (5.0-9.0) Ur Specific [place] 1.020 (1.005-1.030) Urine Protein Negative (NEGATIVE) mg/dL Urine Glucose (UA) Negative (NEGATIVE) mg/dL Urine Ketones 15 H (NEGATIVE) mg/dL Urine Occult Blood Negative (NEGATIVE) Urine Nitrite Negative (NEGATIVE) Urine Bilirubin Small H (NEGATIVE) Urine Urobilinogen 0.2 (0.2-1.0) E.U./dL Ur Leukocyte Esterase Negative (NEGATIVE) Urine RBC Not seen /HPF Urine WBC 0-5 /HPF Ur Epithelial Cells Not seen /LPF Urine Bacteria Rare (NONE TO FEW) /HPF Urine Mucus Rare H (NEGATIVE) /LPF Meds: Medications Discontinued Medications Generic Name Dose Route Start Last Admin Trade Name Freq PRN Reason Stop Dose Admin Amlodipine Besylate 5 mg 01/28/20 15:38 01/28/20 15:48 Norvasc PO 01/28/20 15:39 5 mg ONETIME ONE Administration Heparin Sodium (Porcine) 500 units 01/28/20 18:53 01/28/20 19:00 Heparin Lock Flush 100 Units/Ml FLUSH 01/28/20 18:54 500 units ONETIME ONE Administration Sodium Chloride 1,000 mls @ 999 mls/hr 01/28/20 15:37 01/28/20 15:42 Normal Saline IV 01/28/20 16:37 999 mls/hr .BOLUS ONE Administration Sodium Chloride 1,000 mls @ 500 mls/hr 01/28/20 15:37 01/28/20 16:51 Normal Saline IV 01/28/20 17:36 500 mls/hr .BOLUS ONE Administration Lisinopril 10 mg 01/28/20 15:38 01/28/20 15:49 Prinivil PO 01/28/20 15:39 10 mg ONETIME ONE Administration Metoprolol Tartrate 25 mg 01/28/20 18:02 01/28/20 18:19 Lopressor PO 01/28/20 18:03 25 mg ONETIME ONE Administration Sodium Chloride 10 ml 01/28/20 15:03 01/28/20 18:59 Saline Flush FLUSH 10 ml ASDIRECTED PRN Administration Keep Vein Open - Re-Assessments/Exams Free Text/Narrative Re-Assessment/Exam: 01/28/20 16:34 Patient has felt similarly in past when having bouts with loose stools. IV fluids have always helped. [facility] Chart accessed and workup from yesterday reviewed/negative CT study. No evidence of ulcerative colitis/Crohn's noted by Radiology. No additional imaging performed today. Patient is not having worsening complaints. Basic labs checked. Normal WBC. Cannot rule out gastroenteritis as cause of patient's complaints. May be element of irritable bowel syndrome. Patient denies any change in diet that could have triggered GI issues. He did have antibiotics about one month ago after having right shoulder surgery. Plan at this time is to give 2L of IV NS and discharge patient home. BP meds that he should have taken this morning also given to patient. BP noted to be elevated during intake. He is recommended to continue clear liquids for another 24 hours and then advance diet as tolerated. If symptoms continue without improvement he is to follow up next week with his primary provider for further planning as needed. 01/29/20 13:16 Patient felt improved at time of discharge. BP improved. Departure - Departure Time of Disposition: 19:00 Disposition: Home, Self-Care 01 Condition: Good Clinical Impression: Dehydration Frequent loose stools Qualifiers: Diarrhea type: unspecified type Qualified Code(s): R19.7 - Diarrhea, unspecified - Discharge Information *PRESCRIPTION DRUG MONITORING PROGRAM REVIEWED*: Not Applicable *COPY OF PRESCRIPTION DRUG MONITORING REPORT IN PATIENT FRIDA: Not Applicable Referrals: Frances Cole NP [Primary Care Provider] - Forms: ED Department Discharge Additional Instructions: See how you feel over the next few days. Follow up in the ER if you have sudden worsening problems. Follow up with your provider next week as needed if symptoms to not improve/resolve. Clear liquids/bowel rest recommended for next 24 hours then advance diet as tolerated. Sepsis Event Note - Evaluation Sepsis Screening Result: No Definite Risk - Focused Exam Date Exam was Performed: 01/29/20 Time Exam was Performed: 13:16 - My Orders Last 24 Hours: My Active Orders 01/28/20 17:05 Implanted Port Access [RC] ASDIRECTED - Assessment/Plan Last 24 Hours: My Active Orders 01/28/20 17:05 Implanted Port Access [RC] ASDIRECTED
[2020-01-28 18:15] VITALS: BP 151/97
[2020-01-28] MEDS: Metoprolol Tartrate 25 MG Tab PO ONE (18:19)
[2020-01-28 18:22] VITALS: PULSE 95
[2020-01-28] MEDS: Sodium Chloride 0.9% 10 ML Syringe FLUSH PRN (18:59)
== END 2020-01-28 19:10 | disposition home or self-care (01) ==
LOC: LL.ED 14:49
DX: R19.7 Diarrhea, unspecified (principal); I10 Essential (primary) hypertension; E11.65 Type 2 diabetes mellitus with hyperglycemia; Z88.0 Allergy status to penicillin; Z88.5 Allergy status to narcotic agent; Z79.899 Other long term (current) drug therapy; Z79.82 Long term (current) use of aspirin
CPT/HCPCS: 36415; 36556; 80053; 81001; 83735; 85025; 96360; 96361; 99284-25; A9270-GY; J1642; J7030